=== PATIENT | female | born 1995 | race Asian ===

== ENCOUNTER 2022-10-29 14:08 | Inpatient (IN) ==
[2022-10-29 15:03] LABS: Basophils # (auto) 0.06 K/uL (0.00-0.20); Basophils % (auto) 0.7 %; Eosinophils # (auto) 0.38 K/uL (0.00-0.50); Eosinophils % (auto) 4.7 %; Hematocrit (blood only) 42.3 % (37.0-47.0); Hemoglobin 14.1 g/dl (12.0-16.0); Immature Granulocytes # (auto) 0.02 K/uL (0.01-0.20); Immature Granulocytes % (auto) 0.2 %; Lymphocytes # (auto) 2.59 K/uL (1.20-3.40); Lymphocytes % (auto) 31.7 %; Mean Corpuscular Hemoglobin 30.9 pg (25.0-34.0); Mean Corpuscular Hgb Conc 33.3 g/dL (32.0-36.0); Mean Corpuscular Volume 92.6 fL (80.0-100.0); Mean Platelet Volume 11.9 fL (9.4-12.4); Monocytes # (auto) 0.57 K/uL (0.11-0.59); Neutrophils # (auto) 4.55 K/uL (1.40-6.50); Neutrophils % (auto) 55.7 %; Platelet Count 310 K/uL (130-400); RDW Coefficient of Variation 11.9 % (11.5-14.5); RDW Standard Deviation 40.8 fL (36.4-46.3); Red Blood Count 4.57 M/uL (4.20-5.40); White Blood Count 8.17 K/ul (4.8-10.8)
[2022-10-29 15:18] LABS: Appearance Urine Clear (Clear); Bacteria Urine Automated Negative (Negative); Bilirubin Urine Negative (Negative); Blood Urine Negative (Negative); Cast Urine Automated 0 /lpf (0-5); Color Urine Yellow; Glucose Urine UA Negative (Negative); Ketones Urine Negative (Negative); Leukocyte Esterase Urine 1+ (Negative); Nitrite Urine Negative (Negative); Protein Urine Negative (Negative); RBC Urine Automated 0-4 /hpf (0-4); Specific Gravity Urine 1.011 (1.000-1.030); Urobilinogen Urine Negative (Negative); pH Urine 7.5 (4.5-7.5)
[2022-10-29 15:20] LABS: Acetaminophen < 3 ug/ml (10-30); Salicylate < 3.0 mg/dl (3.0-30)
[2022-10-29 15:21] LABS: Albumin Globulin Ratio 1.5 (0.9-2); Albumin Level 4.8 gm/dl (3.4-5.0); BUN Creatinine Ratio 21.9 (10-20); Bilirubin,Total 0.3 mg/dl (0.2-1.0); Calcium 9.2 mg/dl (8.6-10.3); Creatinine Clr Calc Pharmacy 115.8 ml/min; Est GFR (African American) 143.7 ml/min; Globulin 3.1 gm/dl (2.5-4.0); Potassium 3.9 mmol/L (3.5-5.1); Total Protein 7.9 gm/dl (6.0-8.3)
--- NOTE | 2022-10-29 15:29 | Emergency Department Note ---
History of Present Illness General Chief complaint: Mental Health Evaluation Stated complaint: MHE, THERAPIST CALLED Time Seen by Provider: 10/29/22 14:19 History of Present Illness Provider complaint: Mental health evaluation 27-year-old female presents emergency department for mental health evaluation. 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 Patient reports that she has been having suicidal thoughts. Patient states she has been having increasing stress because she will not be finishing her PhD doctorate and has been trying to find a job but has been unable to. Patient states she has a plan to hang herself. No chance of being . No drugs or alcohol. No access to any firearms. Allergies Allergy/AdvReac Type Severity Reaction Status Date / Time No Known Allergies Allergy Unverified 10/29/22 19:10 Past Med/Surg History Medical History No pertinent family history PTSD (post-traumatic stress disorder) Surgical History No pertinent past surgical history Social History Smoking Status: Never smoker Preferred Language: Sudanese Communication Ability: Effective Property Claims Adjuster Required: No Beliefs That Will Affect Care: None Feels Safe at Home: Yes Gender Identity: Female Assistive Devices: Glasses Physical Exam Vital Signs Vital Signs - 24 hr 10/29/22 14:12 Temperature 36.7 C Temperature Source Skin Pulse Rate 74 Respiratory Rate 18 Blood Pressure 118/78 Blood Pressure Mean 91 Pulse Oximetry 99 Oxygen Delivery Method Room Air Sepsis Recent Fever Within 48 Hours No Sepsis New/Unexplained Change in Mental Status No Sepsis Action Taken by Nursing No Action Required Physical Exam GENERAL: oriented to person, place, and time. appears well-developed and well- nourished. HENT: Exam performed. - Head: Normocephalic and atraumatic. EYES: Conjunctivae and EOM are normal. Right eye exhibits no discharge. Left eye exhibits no discharge. No scleral icterus. NECK: Normal range of motion. Neck supple. No JVD present. CV: Normal rate, regular rhythm, normal heart sounds and intact distal pulses. There is no peripheral edema. Palpable radial pulses bue. PULM/CHEST: Effort normal and breath sounds normal. No respiratory distress. No stridor. no wheezes. no rales. ABD: The abdomen is soft. There is no tenderness. NEURO: Motor and sensation grossly intact. SKIN: Skin is warm and dry. He is not diaphoretic. PSYCH: Suicidal ideation. Course Course 1419: The patient was evaluated in room A8. A complete history and physical exam was performed 1530: Patient medically cleared awaiting psychiatric evaluation and possible placement. Patient placed in observation at this time. 1845: Patient admitted to inpatient psychiatry Medical Decision Making Laboratory Data Attestation: I reviewed the patient's lab results. 10/29/22 14:34 10/29/22 14:34 Lab Results 10/29/22 10/29/22 10/29/22 Range/Units 14:25 14:25 14:34 WBC 8.17 (4.8-10.8) K/ul RBC 4.57 (4.20-5.40) M/uL Hgb 14.1 (12.0-16.0) g/dl Hct 42.3 (37.0-47.0) % MCV 92.6 (80.0-100.0) fL MCH 30.9 (25.0-34.0) pg MCHC 33.3 (32.0-36.0) g/dL RDW Std Deviation 40.8 (36.4-46.3) fL RDW Coeff of Mary 11.9 (11.5-14.5) % Plt Count 310 (130-400) K/uL MPV 11.9 (9.4-12.4) fL Immature Gran % (Auto) 0.2 % Neut % (Auto) 55.7 % Lymph % (Auto) 31.7 % [place] % (Auto) 7.0 % Eos % (Auto) 4.7 % Baso % (Auto) 0.7 % Neut # (Auto) 4.55 (1.40-6.50) K/uL Lymph # (Auto) 2.59 (1.20-3.40) K/uL [place] # (Auto) 0.57 (0.11-0.59) K/uL Eos # (Auto) 0.38 (0.00-0.50) K/uL Baso # (Auto) 0.06 (0.00-0.20) K/uL Immature Gran # (Auto) 0.02 (0.01-0.20) K/uL Sodium (136-145) mmol/L Potassium (3.5-5.1) mmol/L Chloride (98-107) mmol/L Carbon Dioxide (21-32) mmol/L Anion Gap (3-11) BUN (6-23) mg/dl Creatinine (0.6-1.2) mg/dl Est Cr Clr Drug Dosing ml/min Est GFR ( Amer) ml/min Est GFR (Non-Af Amer) ml/min BUN/Creatinine Ratio (10-20) Glucose (70-99(Fasting)) mg/dl Calcium (8.6-10.3) mg/dl Total Bilirubin (0.2-1.0) mg/dl AST (13-39) U/L ALT (7-52) U/L Alkaline Phosphatase (34-104) U/L Total Protein (6.0-8.3) gm/dl Albumin (3.4-5.0) gm/dl Globulin (2.5-4.0) gm/dl Albumin/Globulin Ratio (0.9-2) TSH (0.300-4.500) uIu/ml Urine Color Yellow Urine Appearance Clear (Clear) Urine pH 7.5 (4.5-7.5) Ur Specific [place] 1.011 (1.000-1.030) Urine Protein Negative (Negative) Urine Glucose (UA) Negative (Negative) Urine Ketones Negative (Negative) Urine Blood Negative (Negative) Urine Nitrite Negative (Negative) Urine Bilirubin Negative (Negative) Urine Urobilinogen Negative (Negative) Ur Leukocyte Esterase 1+ H (Negative) Urine WBC (Auto) 1-5 (0-5) /hpf Urine RBC (Auto) 0-4 (0-4) /hpf U Hyaline Cast (Auto) 0 (0-5) /lpf U Epithel Cells (Auto) 5-10 H (0-5) /lpf Urine Bacteria (Auto) Negative (Negative) Salicylates (3.0-30) mg/dl Urine Opiates Screen Neg (Neg) Ur Methadone, Qual Neg (Neg) Acetaminophen (10-30) ug/ml Urine Barbiturates Neg (Neg) Ur Phencyclidine (PCP) Neg (Neg) U Amphetamin/Meth Scrn Neg (Neg) MDMA (Ecstasy) Screen Neg (Neg) U Benzodiazepines Scrn Neg (Neg) Ur Cocaine Metabolite Neg (Neg) U Marijuana (THC) Screen Neg (Neg) Ethyl Alcohol mg/dL (<10.0) mg/dl SARS-CoV-2, RNA, NAAT (NEGATIVE) 10/29/22 10/29/22 10/29/22 Range/Units 14:34 14:34 14:34 WBC (4.8-10.8) K/ul RBC (4.20-5.40) M/uL Hgb (12.0-16.0) g/dl Hct (37.0-47.0) % MCV (80.0-100.0) fL MCH (25.0-34.0) pg MCHC (32.0-36.0) g/dL RDW Std Deviation (36.4-46.3) fL RDW Coeff of Mary (11.5-14.5) % Plt Count (130-400) K/uL MPV (9.4-12.4) fL Immature Gran % (Auto) % Neut % (Auto) % Lymph % (Auto) % [place] % (Auto) % Eos % (Auto) % Baso % (Auto) % Neut # (Auto) (1.40-6.50) K/uL Lymph # (Auto) (1.20-3.40) K/uL [place] # (Auto) (0.11-0.59) K/uL Eos # (Auto) (0.00-0.50) K/uL Baso # (Auto) (0.00-0.20) K/uL Immature Gran # (Auto) (0.01-0.20) K/uL Sodium 138 (136-145) mmol/L Potassium 3.9 (3.5-5.1) mmol/L Chloride 105 (98-107) mmol/L Carbon Dioxide 28 (21-32) mmol/L Anion Gap 5 (3-11) BUN 14 (6-23) mg/dl Creatinine 0.64 (0.6-1.2) mg/dl Est Cr Clr Drug Dosing 115.8 ml/min Est GFR ( Amer) 143.7 ml/min Est GFR (Non-Af Amer) 124.0 ml/min BUN/Creatinine Ratio 21.9 H (10-20) Glucose 88 (70-99(Fasting)) mg/dl Calcium 9.2 (8.6-10.3) mg/dl Total Bilirubin 0.3 (0.2-1.0) mg/dl AST 13 (13-39) U/L ALT 10 (7-52) U/L Alkaline Phosphatase 74 (34-104) U/L Total Protein 7.9 (6.0-8.3) gm/dl Albumin 4.8 (3.4-5.0) gm/dl Globulin 3.1 (2.5-4.0) gm/dl Albumin/Globulin Ratio 1.5 (0.9-2) TSH 1.005 (0.300-4.500) uIu/ml Urine Color Urine Appearance (Clear) Urine pH (4.5-7.5) Ur Specific [place] (1.000-1.030) Urine Protein (Negative) Urine Glucose (UA) (Negative) Urine Ketones (Negative) Urine Blood (Negative) Urine Nitrite (Negative) Urine Bilirubin (Negative) Urine Urobilinogen (Negative) Ur Leukocyte Esterase (Negative) Urine WBC (Auto) (0-5) /hpf Urine RBC (Auto) (0-4) /hpf U Hyaline Cast (Auto) (0-5) /lpf U Epithel Cells (Auto) (0-5) /lpf Urine Bacteria (Auto) (Negative) Salicylates < 3.0 L (3.0-30) mg/dl Urine Opiates Screen (Neg) Ur Methadone, Qual (Neg) Acetaminophen < 3 L (10-30) ug/ml Urine Barbiturates (Neg) Ur Phencyclidine (PCP) (Neg) U Amphetamin/Meth Scrn (Neg) MDMA (Ecstasy) Screen (Neg) U Benzodiazepines Scrn (Neg) Ur Cocaine Metabolite (Neg) U Marijuana (THC) Screen (Neg) Ethyl Alcohol mg/dL (<10.0) mg/dl SARS-CoV-2, RNA, NAAT (NEGATIVE) 10/29/22 10/29/22 Range/Units 14:34 14:34 WBC (4.8-10.8) K/ul RBC (4.20-5.40) M/uL Hgb (12.0-16.0) g/dl Hct (37.0-47.0) % MCV (80.0-100.0) fL MCH (25.0-34.0) pg MCHC (32.0-36.0) g/dL RDW Std Deviation (36.4-46.3) fL RDW Coeff of Mary (11.5-14.5) % Plt Count (130-400) K/uL MPV (9.4-12.4) fL Immature Gran % (Auto) % Neut % (Auto) % Lymph % (Auto) % [place] % (Auto) % Eos % (Auto) % Baso % (Auto) % Neut # (Auto) (1.40-6.50) K/uL Lymph # (Auto) (1.20-3.40) K/uL [place] # (Auto) (0.11-0.59) K/uL Eos # (Auto) (0.00-0.50) K/uL Baso # (Auto) (0.00-0.20) K/uL Immature Gran # (Auto) (0.01-0.20) K/uL Sodium (136-145) mmol/L Potassium (3.5-5.1) mmol/L Chloride (98-107) mmol/L Carbon Dioxide (21-32) mmol/L Anion Gap (3-11) BUN (6-23) mg/dl Creatinine (0.6-1.2) mg/dl Est Cr Clr Drug Dosing ml/min Est GFR ( Amer) ml/min Est GFR (Non-Af Amer) ml/min BUN/Creatinine Ratio (10-20) Glucose (70-99(Fasting)) mg/dl Calcium (8.6-10.3) mg/dl Total Bilirubin (0.2-1.0) mg/dl AST (13-39) U/L ALT (7-52) U/L Alkaline Phosphatase (34-104) U/L Total Protein (6.0-8.3) gm/dl Albumin (3.4-5.0) gm/dl Globulin (2.5-4.0) gm/dl Albumin/Globulin Ratio (0.9-2) TSH (0.300-4.500) uIu/ml Urine Color Urine Appearance (Clear) Urine pH (4.5-7.5) Ur Specific [place] (1.000-1.030) Urine Protein (Negative) Urine Glucose (UA) (Negative) Urine Ketones (Negative) Urine Blood (Negative) Urine Nitrite (Negative) Urine Bilirubin (Negative) Urine Urobilinogen (Negative) Ur Leukocyte Esterase (Negative) Urine WBC (Auto) (0-5) /hpf Urine RBC (Auto) (0-4) /hpf U Hyaline Cast (Auto) (0-5) /lpf U Epithel Cells (Auto) (0-5) /lpf Urine Bacteria (Auto) (Negative) Salicylates (3.0-30) mg/dl Urine Opiates Screen (Neg) Ur Methadone, Qual (Neg) Acetaminophen (10-30) ug/ml Urine Barbiturates (Neg) Ur Phencyclidine (PCP) (Neg) U Amphetamin/Meth Scrn (Neg) MDMA (Ecstasy) Screen (Neg) U Benzodiazepines Scrn (Neg) Ur Cocaine Metabolite (Neg) U Marijuana (THC) Screen (Neg) Ethyl Alcohol mg/dL < 10.0 (<10.0) mg/dl SARS-CoV-2, RNA, NAAT NEGATIVE (NEGATIVE) MDM Narrative 1419: The patient was evaluated in room A8. A complete history and physical exam was performed 1530: Patient medically cleared awaiting psychiatric evaluation and possible placement. Patient placed in observation at this time. 1845: Patient admitted to inpatient psychiatry Observation note Indication: Psych eval/placement Patient, with PTSD was first seen at 1419 hrs and the observation time began at 1530 hrs and was necessary in order to have psych evaluation completed . Upon re-evaluation, 3 hours and 15 minutes of observation revealed that the patient should be admitted. Disposition date and time October 29, 2022 1845. Impression & Plan Depression with suicidal ideation Discharge Plan Visit Data Chief Complaint: Mental Health Evaluation Stated Complaint: MHE, THERAPIST CALLED ED Provider: Jamey Huertas Discharge Problem: Depression with suicidal ideation Patient Disposition: Admitted As Inpatient Discharge Instructions Interventions: ED Discharge Assessment Last Done: 10/29/22 18:45
[2022-10-29 15:49] LABS: Amphetamines+Metham, Urine Neg (Neg); Barbiturates, Urine Neg (Neg); Benzodiazepine, Urine Neg (Neg); Cocaine, Urine Neg (Neg); MDMA (Ecstacy), Urine Neg (Neg); Methadone, Urine Neg (Neg); Opiate, Urine Neg (Neg); Phencyclidine, Urine Neg (Neg)
[2022-10-29] MEDS ORDERED: hydrOXYzine HCl 25 MG TAB PO PRN ×2 (22:04)
[2022-10-29] MEDS ORDERED: MAGNESIUM HYDROXIDE SUSP 30 ML UDC PO PRN (22:04)
[2022-10-29] MEDS ORDERED: ACETAMINOPHEN 325 MG TAB PO PRN (22:04)
[2022-10-29] MEDS ORDERED: BISMUTH SUBSALICYLATE LIQD 236 ML PO PRN (22:04)
[2022-10-29] MEDS ORDERED: ALUMINUM/MAGNESIUM SUSP 30 ML UDC PO PRN (22:04)
[2022-10-29] MEDS ORDERED: SODIUM CHLORIDE 0.65% NA SOLN 45 ML (OCEAN) PRN (22:04)
[2022-10-30] MEDS ORDERED: DULoxetine HCL 20 MG CAP PO SCH (13:30)
--- NOTE | 2022-10-30 13:39 | History & Physical ---
Date of Service October 30, 2022 Impression / Recommendations Impression 27 y/o F with history of PTSD and current strongly ego-dystonic obsessive fears that she might kill herself and intrusive images of her friend's and sometimes her own body hanging. She is very distressed by these intrusive thoughts and is anxious about a number of life issues including graduate school and career. In my opinion, she presents a low risk of suicide, which is something she fears rather than something she wants. I don't believe that her involuntary admission resulted from communication problems on her part so much as clinicians' somewhat restricted and uncritical acceptance of her initial (and honest and accurate) responses to the formulaic questions we so often ask about "suicidal thoughts" and "suicidal plans". Her obsessive thoughts include the fear she might kill herself and are very specifically about hanging, but don't actually reflect any wish on her part to be or to hang herself. (1) PTSD (post-traumatic stress disorder): Plan The patient was admitted to the [facility] ([facility] mental health unit) on q15 min checks (behavioral with suicide precautions) for safety. In light of further detailed interview by multiple clinicians here, I do not believe she meets criteria for involuntary emergency psychiatric treatment and can appropriately and safely be treated on an outpatient basis if she is not willing to initiate treatment in the hospital. I discussed with pt medication options for medication treatment of PTSD, specifically SSRI or SNRI. Given her degree of generalized anxiety and the obsessive nature of some of her thoughts, I focused on the SNRI duloxetine. We reviewed indications, anticipated benefits, and potential adverse effects of that medication including GI side effects, headaches, elevated blood pressure, or discontinuation symptoms if stopped abruptly. She agreed to a trial of duloxetine at a starting dose of 20 mg daily with planned titration over the course of 1 week to a target dose of 60 mg/day. 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 Needs: safety and stabilization, medication adjustment, additional coping skills, increased outpatient services Suicide Risk Level Suicide Risk Level: Low (q15 min observation checks) Suicide Risk Level Comments: ego-dystonic suicidal obsessions; readily contracts for safety Risk Factors Assessment Male: No : No Do You Have Access To A Gun?: No Health Problems: No Mental Health Diagnoses: Yes Substance Use Disorders: No Previous Attempt: No Family History of Suicide: No (but close friend, whose body she found) Hopelessness: Yes Protective Factors Assessment : No Responsible for Young Children: No 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 Chief Complaint "I don't need to be here". History of Present Illness As part of a thorough review of the available medical records, I have read and confirmed the following note by the ED physician: "27-year-old female presents emergency department for mental health evaluation. 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 Patient reports that she has been having suicidal thoughts. Patient states she has been having increasing stress because she will not be finishing her PhD doctorate and has been trying to find a job but has been unable to. Patient states she has a plan to hang herself. No chance of being . No drugs or alcohol. No access to any firearms." the following note by the ED psychiatric bottle caser: "Patient was sent to the ED by her therapist for further mental health evaluation due to suicidal ideations. 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 Patient is stressed because she has already attempted to find a job, but the market is bad. Patient is diagnosed with PTSD. Patient admits to suicidal ideations with a plan to hang herself. Patient does not have access to guns. Patient denies any drug and alcohol use." and the following note by the psychiatric liaison nurse: "Met with Patricia to complete psychiatric assessment. She admits to suicidal thoughts with a plan to hang herself. Her only service provider at the moment is her therapist, Margie Reardon. She carries a diagnosis of PTSD and is not on any medication for her mental health. Her most significant stressor at this time is her studies within her PhD program at [employer]. At the time of assessment, Patricia was not overly forthcoming with information and shared only short answers. She admits to having no motivation but does not elaborate how this impacts her day-to-day life. She expresses that she wishes to leave and that she thought she would be able to be prescribed medication and be discharged. She states she never would have came to the ED if she would have known that the process was more extensive than she had thought. She states she has been experiencing moderate to severe anxiety. She denies having any local supports and her family in [place] reportedly are not aware of Patricia's mental health decline. She lives in an apartment with roommates but states these roommates are not her friends. She denies SIB, HI, A/V hallucinations, and abuse hx. She admits to a past suicide attempt by hanging 2-3 years ago and states she did not receive any treatment following this attempt. I spoke extensively to Patricia about inpatient psychiatric treatment and Patricia states that she will not sign herself in for treatment. This bottle caser completed a petitioning statement and contacted the [facility] for a mental health warrant." Review of the medical record reveals no previous or outside psychiatric records. Pt. carries diagnosis of PTSD. Review of pertinent labs reveals they are noncontributory. Urine toxicology screen that was negative for all tested substrates. BAL was <10 mg/dL. Pt provides a history that superficially overlaps with above documentation, but which disagrees with it in several critically important ways. In 2016, pt found a friend who had completed suicide by hanging. Pt cut that friend's body down. This was understandably highly distressing. Since that time, pt has had intrusive recollections of that event, increased anxiety, and depressive symptoms including anhedonia and reduced motivation. She has been engaging in psychotherapeutic treatment but has never used any psychiatric medication. 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 Over the past week, she says, she has felt increasingly overwhelmed and worried. She has begun having the obsessive fear that she might, at some point for some reason, feel compelled to hang herself. These thoughts are strongly ego-dystonic - she finds them frightening and horrifying, and fears further the devastating consequences for others if they were to encounter her of hanging. She has no need to struggle against acting on suicidal impulses because she doesn't actually have any - she struggles to push out of her thoughts the unpleasant and scary fear that she might do this thing she finds abhorrent and does not want to do. Pt denies the above-quoted report that she had attempted to hang herself 2-3 years ago. She says she had a previous period of intense, intrusive thoughts like the present ones and then, just as now, had no desire to harm herself and did nothing to harm herself. Pt says that when she was asked if she had suicidal thoughts, she endorsed that she did have obsessive, ego-dystonic thoughts about suicide. She says that when she was asked if she had a plan, she endorsed that she did because all of those obsessive, ego-dystonic thoughts were specifically about hanging. In speaking at length with a rn social services, and again with me, pt consistently emphasized that she had no desire to be and, in fact, fears dying. She consistently emphasized that she fears that she might end up killing herself by hanging because for years she's had unpleasant and frightening intrusive images of her friend's or her own body hanging. Pt strongly desires treatment, hoping that medication might help her stop having these burdensome and distressing symptoms. She does not believe that she needs to be in the hospital for safety and insists that she will be perfectly safe at home and wants more outpatient treatment than that in which she'd been engaging prior to admission. Past Psychiatric History Current Psychiatric Diagnosis: Major depressive d/o Outpatient Services: Outpatient psychotherapy Previous Psych Admissions: none Do You Have Access To A Gun?: No History of Previous Suicide Attempt: No Past Medication Trials: none Allergies Allergy/AdvReac Type Severity Reaction Status Date / Time No Known Allergies Allergy Unverified 10/29/22 19:10 Home Medications Medication Instructions Recorded Confirmed Type duloxetine 20 mg capsule,delayed See Rx Instructions .Route 10/30/22 Rx release (Cymbalta) .COMPLEX 30 days #80 caps Family History Family History of: Doesn't Know Alcohol History Hx of Alcohol Use Over the Past 12 Months: No AUDIT Total Score: 0 Smoking Use Have You Smoked or Used Tobacco Products in the Last 30 Days: No Smoking Status: Never smoker Substance History Hx of Prescription Med Misuse Over the Past 12 Months: No Hx of Over the Counter Med Misuse Over the Past 12 Months: No Hx of Inhalent Misuse Over the Past 12 Months: No Hx of Organic Substance Use Over the Past 12 Months: No Hx of Illegal Substances/Street Drug Use Over Past 12 Months: No Problems as a Result of Past Substance Use: None Identified Personal History Living Arrangements: Apartment Highest Grade Completed: Graduate School Highest Grade Completed Comment: 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 in 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 Marital Status: Single Beliefs That Will Affect Care: None Patient History Medical History No pertinent family history PTSD (post-traumatic stress disorder) Surgical History No pertinent past surgical history Social History Smoking Status: Never smoker Preferred Language: Panamanian Communication Ability: Effective Wringer And Setter Required: No Beliefs That Will Affect Care: None Feels Safe at Home: Yes Gender Identity: Female Assistive Devices: Glasses Review of Systems Psychiatric: as per Subjective / HPI, + hopelessness, + anhedonia, + anxiety, + difficulty concentrating and + problem reported (flashbacks, obsessions); no suicidal ideation and no hallucinations Physical Exam Psychiatric: Orientation: alert, oriented to person, oriented to place, oriented to time and cooperative Apperance: appropriately dressed and appropriately groomed Eye Contact: good eye contact Motor Behavior: no abnormal motor movements Speech: normal rate/rhythm/volume of speech Affect: + anxious affect and mood congruent with affect Mood: + anxious mood Thought Process: linear/logical thought process and clear/coherent thought process Thought Content: + obsessions and + cognitive distortions; no delusions Suicidal Thoughts: denies suicidal thoughts, denies suicidal plan and denies suicidal intent frequent ego-dystonic obsessions about suicide Homicidal Thoughts: denies homicidal thoughts Hallucinations: no auditory hallucinations and no visual hallucinations Cognition: recent memory grossly intact, remote memory grossly intact, attention grossly intact and language grossly intact spoken Panamanian and Panamanian comprehension excellent Estimated Intelligence: + above average estimated intelligence Insight: good insight Judgment: + fair judgement Vital Signs (Past 24 Hours): Last Vital Signs Temp 36.5 C 10/30/22 07:13 Pulse 69 10/30/22 07:13 Resp 16 10/30/22 07:13 BP 93/66 L 10/30/22 07:13 Pulse Ox 99 10/29/22 18:45 O2 Del Method Room Air 10/29/22 18:45 Exam Statement: A physical exam was performed in the ED for the purposes of medical clearance. I accept that physical as correct and adequate for the purposes of the inpatient physical exam. Results & Data ([facility]) Laboratory Results Laboratory Results - last 24 hr 10/29/22 10/29/22 10/29/22 14:25 14:25 14:34 WBC 8.17 RBC 4.57 Hgb 14.1 Hct 42.3 MCV 92.6 MCH 30.9 MCHC 33.3 RDW Std Deviation 40.8 RDW Coeff of Mary 11.9 Plt Count 310 MPV 11.9 Immature Gran % (Auto) 0.2 Neut % (Auto) 55.7 Lymph % (Auto) 31.7 [place] % (Auto) 7.0 Eos % (Auto) 4.7 Baso % (Auto) 0.7 Neut # (Auto) 4.55 Lymph # (Auto) 2.59 [place] # (Auto) 0.57 Eos # (Auto) 0.38 Baso # (Auto) 0.06 Immature Gran # (Auto) 0.02 Sodium Potassium Chloride Carbon Dioxide Anion Gap BUN Creatinine Est Cr Clr Drug Dosing Est GFR ( Amer) Est GFR (Non-Af Amer) BUN/Creatinine Ratio Glucose Calcium Total Bilirubin AST ALT Alkaline Phosphatase Total Protein Albumin Globulin Albumin/Globulin Ratio TSH Urine Color Yellow Urine Appearance Clear Urine pH 7.5 Ur Specific [place] 1.011 Urine Protein Negative Urine Glucose (UA) Negative Urine Ketones Negative Urine Blood Negative Urine Nitrite Negative Urine Bilirubin Negative Urine Urobilinogen Negative Ur Leukocyte Esterase 1+ H Urine WBC (Auto) 1-5 Urine RBC (Auto) 0-4 U Hyaline Cast (Auto) 0 U Epithel Cells (Auto) 5-10 H Urine Bacteria (Auto) Negative Salicylates Urine Opiates Screen Neg Ur Methadone, Qual Neg Acetaminophen Urine Barbiturates Neg Ur Phencyclidine (PCP) Neg U Amphetamin/Meth Scrn Neg MDMA (Ecstasy) Screen Neg U Benzodiazepines Scrn Neg Ur Cocaine Metabolite Neg U Marijuana (THC) Screen Neg Ethyl Alcohol mg/dL SARS-CoV-2, RNA, NAAT 10/29/22 10/29/22 10/29/22 14:34 14:34 14:34 WBC RBC Hgb Hct MCV MCH MCHC RDW Std Deviation RDW Coeff of Mary Plt Count MPV Immature Gran % (Auto) Neut % (Auto) Lymph % (Auto) [place] % (Auto) Eos % (Auto) Baso % (Auto) Neut # (Auto) Lymph # (Auto) [place] # (Auto) Eos # (Auto) Baso # (Auto) Immature Gran # (Auto) Sodium 138 Potassium 3.9 Chloride 105 Carbon Dioxide 28 Anion Gap 5 BUN 14 Creatinine 0.64 Est Cr Clr Drug Dosing 115.8 Est GFR ( Amer) 143.7 Est GFR (Non-Af Amer) 124.0 BUN/Creatinine Ratio 21.9 H Glucose 88 Calcium 9.2 Total Bilirubin 0.3 AST 13 ALT 10 Alkaline Phosphatase 74 Total Protein 7.9 Albumin 4.8 Globulin 3.1 Albumin/Globulin Ratio 1.5 TSH 1.005 Urine Color Urine Appearance Urine pH Ur Specific [place] Urine Protein Urine Glucose (UA) Urine Ketones Urine Blood Urine Nitrite Urine Bilirubin Urine Urobilinogen Ur Leukocyte Esterase Urine WBC (Auto) Urine RBC (Auto) U Hyaline Cast (Auto) U Epithel Cells (Auto) Urine Bacteria (Auto) Salicylates < 3.0 L Urine Opiates Screen Ur Methadone, Qual Acetaminophen < 3 L Urine Barbiturates Ur Phencyclidine (PCP) U Amphetamin/Meth Scrn MDMA (Ecstasy) Screen U Benzodiazepines Scrn Ur Cocaine Metabolite U Marijuana (THC) Screen Ethyl Alcohol mg/dL SARS-CoV-2, RNA, NAAT 10/29/22 10/29/22 14:34 14:34 WBC RBC Hgb Hct MCV MCH MCHC RDW Std Deviation RDW Coeff of Mary Plt Count MPV Immature Gran % (Auto) Neut % (Auto) Lymph % (Auto) [place] % (Auto) Eos % (Auto) Baso % (Auto) Neut # (Auto) Lymph # (Auto) [place] # (Auto) Eos # (Auto) Baso # (Auto) Immature Gran # (Auto) Sodium Potassium Chloride Carbon Dioxide Anion Gap BUN Creatinine Est Cr Clr Drug Dosing Est GFR ( Amer) Est GFR (Non-Af Amer) BUN/Creatinine Ratio Glucose Calcium Total Bilirubin AST ALT Alkaline Phosphatase Total Protein Albumin Globulin Albumin/Globulin Ratio TSH Urine Color Urine Appearance Urine pH Ur Specific [place] Urine Protein Urine Glucose (UA) Urine Ketones Urine Blood Urine Nitrite Urine Bilirubin Urine Urobilinogen Ur Leukocyte Esterase Urine WBC (Auto) Urine RBC (Auto) U Hyaline Cast (Auto) U Epithel Cells (Auto) Urine Bacteria (Auto) Salicylates Urine Opiates Screen Ur Methadone, Qual Acetaminophen Urine Barbiturates Ur Phencyclidine (PCP) U Amphetamin/Meth Scrn MDMA (Ecstasy) Screen U Benzodiazepines Scrn Ur Cocaine Metabolite U Marijuana (THC) Screen Ethyl Alcohol mg/dL < 10.0 SARS-CoV-2, RNA, NAAT NEGATIVE Current Inpatient Medications Current Inpatient Medications: Current Inpatient Medications Acetaminophen (Acetaminophen 325 Mg Tab) 650 mg PO Q4H PRN PRN Reason: Headache or Minor Fever Stop: 11/28/22 22:03 Al Hydrox/Mg Hydrox/Simethicone (Aluminum/Magnesium Susp 30 Ml Udc) 30 ml PO Q4H PRN PRN Reason: GI Upset Stop: 11/28/22 22:03 Bismuth Subsalicylate (Bismuth Subsalicylate Liqd 236 Ml) 15 ml PO PRN PRN PRN Reason: Loose Stool Stop: 11/28/22 22:03 Duloxetine HCl (Duloxetine Hcl 20 Mg Cap) 20 mg PO QAM MARTINA Stop: 11/29/22 13:29 Hydroxyzine HCl (Hydroxyzine Hcl 25 Mg Tab) 50 mg PO HSZ PRN PRN Reason: Insomnia Stop: 11/28/22 22:03 Hydroxyzine HCl (Hydroxyzine Hcl 25 Mg Tab) 25 mg PO Q4H PRN PRN Reason: Anxiety Stop: 11/28/22 22:03 Last Admin: 10/30/22 04:19 Dose: 25 mg Magnesium Hydroxide (Magnesium Hydroxide Susp 30 Ml Udc) 30 ml PO DAILY PRN PRN Reason: Constipation Stop: 11/28/22 22:03 Sodium Chloride (Sodium Chloride 0.65% Na Soln 45 Ml ([place])) 1 - 2 sprays NA PRN PRN PRN Reason: Nasal Dryness/Congestion Stop: 11/28/22 22:03
--- NOTE | 2022-10-30 15:19 | Discharge Summary ---
Date of Service October 30, 2022 History of Present Illness As part of a thorough review of the available medical records, I have read and confirmed the following note by the ED physician: "27-year-old female presents emergency department for mental health evaluation. 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 Patient reports that she has been having suicidal thoughts. Patient states she has been having increasing stress because she will not be finishing her PhD doctorate and has been trying to find a job but has been unable to. Patient states she has a plan to hang herself. No chance of being . No drugs or alcohol. No access to any firearms." the following note by the ED psychiatric human services case manager: "Patient was sent to the ED by her therapist for further mental health evaluation due to suicidal ideations. 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 Patient is stressed because she has already attempted to find a job, but the market is bad. Patient is d iagnosed with PTSD. Patient admits to suicidal ideations with a plan to hang herself. Patient does not have access to guns. Patient denies any drug and alcohol use." and the following note by the psychiatric liaison nurse: "Met with Patricia to complete psychiatric assessment. She admits to suicidal thoughts with a plan to hang herself. Her only service provider at the moment is her therapist, Margie Reardon. She carries a diagnosis of PTSD and is not on any medication for her mental health. Her most significant stressor at this time is her studies within her PhD program at [employer]. At the time of assessment, Patricia was not overly forthcoming with information and shared only short answers. She admits to having no motivation but does not elaborate how this impacts her day-to-day life. She expresses that she wishes to leave and that she thought she would be able to be prescribed medication and be discharged. She states she never would have came to the ED if she would have known that the process was more extensive than she had thought. She states she has been experiencing moderate to severe anxiety. She denies having any local supports and her family in [place] reportedly are not aware of Patricia's mental health decline. She lives in an apartment with roommates but states these roommates are not her friends. She denies SIB, HI, A/V hallucinations, and abuse hx. She admits to a past suicide attempt by hanging 2-3 years ago and states she did not receive any treatment following this attempt. I spoke extensively to Patricia about inpatient psychiatric treatment and Patricia states that she will not sign herself in for treatment. This human services case manager completed a petitioning statement and contacted the [facility] for a mental health warrant." Review of the medical record reveals no previous or outside psychiatric records. Pt. carries diagnosis of PTSD. Review of pertinent labs reveals they are noncontributory. Urine toxicology screen that was negative for all tested substrates. BAL was <10 mg/dL. Pt provides a history that superficially overlaps with above documentation, but which disagrees with it in several critically important ways. In 2016, pt found a friend who had completed suicide by hanging. Pt cut that friend's body down. This was understandably highly distressing. Since that time, pt has had intrusive recollections of that event, increased anxiety, and depressive symptoms including anhedonia and reduced motivation. She has been engaging in psychotherapeutic treatment but has never used any psychiatric m edication. 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 Over the past week, she says, she has felt increasingly overwhelmed and worried. She has begun having the obsessive fear that she might, at some point for some reason, feel compelled to hang herself. These thoughts are strongly ego-dystonic - she finds them frightening and horrifying, and fears further the devastating consequences for others if they were to encounter her of hanging. She has no need to struggle against acting on suicidal impulses because she doesn't actually have any - she struggles to push out of her thoughts the unpleasant and scary fear that she might do this thing she finds abhorrent and does not want to do. Pt denies the above-quoted report that she had attempted to hang herself 2-3 years ago. She says she had a previous period of intense, intrusive thoughts like the present ones and then, just as now, had no desire to harm herself and did nothing to harm herself. Pt says that when she was asked if she had suicidal thoughts, she endorsed that she did have obsessive, ego-dystonic thoughts about suicide. She says that when she was asked if she had a plan, she endorsed that she did because all of those obsessive, ego-dystonic thoughts were specifically about hanging. In speaking at length with a social services director, and again with me, pt consistently emphasized that she had no desire to be and, in fact, fears dying. She consistently emphasized that she fears that she might end up killing herself by hanging because for years she's had unpleasant and frightening intrusive images of her friend's or her own body hanging. Pt strongly desires treatment, hoping that medication might help her stop having these burdensome and distressing symptoms. She does not believe that she needs to be in the hospital for safety and insists that she will be perfectly safe at home and wants more outpatient treatment than that in which she'd been engaging prior to admission. Physical Exam Psychiatric Orientation: alert, oriented to person, oriented to place, oriented to time and cooperative Apperance: appropriately dressed and appropriately groomed Eye Contact: good eye contact Motor Behavior: no abnormal motor movements Speech: normal rate/rhythm/volume of speech Affect: + anxious affect and mood congruent with affect Mood: + anxious mood Thought Process: linear/logical thought process and clear/coherent thought process Thought Content: + obsessions and + cognitive distortions; no delusions Suicidal Thoughts: denies suicidal thoughts, denies suicidal plan and denies suicidal intent Homicidal Thoughts: denies homicidal thoughts Hallucinations: no auditory hallucinations and no visual hallucinations Cognition: recent memory grossly intact, remote memory grossly intact, attention grossly intact and language grossly intact Estimated Intelligence: + above average estimated intelligence Insight: good insight Judgment: + fair judgement Vital Signs (Past 24 Hours) Last Vital Signs Temp 36.5 C 10/30/22 07:13 Pulse 69 10/30/22 07:13 Resp 16 10/30/22 07:13 BP 93/66 L 10/30/22 07:13 Pulse Ox 99 10/29/22 18:45 O2 Del Method Room Air 10/29/22 18:45 See admission H&P and DOD assessment. Principal Diagnosis Post-traumatic stress disorder Psychiatric Data See daily stay summary. In short, safety was maintained and the patient was cooperative with care. Medication changes included addition of duloxetine and they tolerated this well. A family session was not held and safety plan was completed prior to discharge. Day of Discharge Assessment Today the patient voices readiness for discharge. They deny thoughts to harm self or others. Thoughts remain organized and they are improved from admission. There is no evidence of psychosis. They agree to take medications as prescribed and keep follow-up appointments. They are stable for discharge to outpatient level of care. Transition of Care Transition Of Care Record: was reviewed with the patient Advance Directives Advance Directives Information Provided: Yes Advance Directives: No Mental Health Advance Directive: No Advance Directives on File: No Living Will: No Power of Employee Benefits Manager: No Advance Directives Reason:: Declines as Mental Health Visit. 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) Tobacco Cessation at Discharge Tobacco Cessation Medication Prescribed at Discharge: Not Applicable/Non-Smoker Total Time Total Time Spent: Greater Than 30 Minutes Total Time Includes: Examination of the patient, Discharge Planning, Medication Reconciliation and As well as (documentation) Discharge Data Lab Results 10/29/22 10/29/22 10/29/22 14:25 14:25 14:34 WBC 8.17 RBC 4.57 Hgb 14.1 Hct 42.3 MCV 92.6 MCH 30.9 MCHC 33.3 RDW Std Deviation 40.8 RDW Coeff of Mary 11.9 Plt Count 310 MPV 11.9 Immature Gran % (Auto) 0.2 Neut % (Auto) 55.7 Lymph % (Auto) 31.7 [place] % (Auto) 7.0 Eos % (Auto) 4.7 Baso % (Auto) 0.7 Neut # (Auto) 4.55 Lymph # (Auto) 2.59 [place] # (Auto) 0.57 Eos # (Auto) 0.38 Baso # (Auto) 0.06 Immature Gran # (Auto) 0.02 Sodium Potassium Chloride Carbon Dioxide Anion Gap BUN Creatinine Est Cr Clr Drug Dosing Est GFR ( Amer) Est GFR (Non-Af Amer) BUN/Creatinine Ratio Glucose Calcium Total Bilirubin AST ALT Alkaline Phosphatase Total Protein Albumin Globulin Albumin/Globulin Ratio TSH Urine Color Yellow Urine Appearance Clear Urine pH 7.5 Ur Specific [place] 1.011 Urine Protein Negative Urine Glucose (UA) Negative Urine Ketones Negative Urine Blood Negative Urine Nitrite Negative Urine Bilirubin Negative Urine Urobilinogen Negative Ur Leukocyte Esterase 1+ H Urine WBC (Auto) 1-5 Urine RBC (Auto) 0-4 U Hyaline Cast (Auto) 0 U Epithel Cells (Auto) 5-10 H Urine Bacteria (Auto) Negative Salicylates Urine Opiates Screen Neg Ur Methadone, Qual Neg Acetaminophen Urine Barbiturates Neg Ur Phencyclidine (PCP) Neg U Amphetamin/Meth Scrn Neg MDMA (Ecstasy) Screen Neg U Benzodiazepines Scrn Neg Ur Cocaine Metabolite Neg U Marijuana (THC) Screen Neg Ethyl Alcohol mg/dL SARS-CoV-2, RNA, NAAT 10/29/22 10/29/22 10/29/22 14:34 14:34 14:34 WBC RBC Hgb Hct MCV MCH MCHC RDW Std Deviation RDW Coeff of Mary Plt Count MPV Immature Gran % (Auto) Neut % (Auto) Lymph % (Auto) [place] % (Auto) Eos % (Auto) Baso % (Auto) Neut # (Auto) Lymph # (Auto) [place] # (Auto) Eos # (Auto) Baso # (Auto) Immature Gran # (Auto) Sodium 138 Potassium 3.9 Chloride 105 Carbon Dioxide 28 Anion Gap 5 BUN 14 Creatinine 0.64 Est Cr Clr Drug Dosing 115.8 Est GFR ( Amer) 143.7 Est GFR (Non-Af Amer) 124.0 BUN/Creatinine Ratio 21.9 H Glucose 88 Calcium 9.2 Total Bilirubin 0.3 AST 13 ALT 10 Alkaline Phosphatase 74 Total Protein 7.9 Albumin 4.8 Globulin 3.1 Albumin/Globulin Ratio 1.5 TSH 1.005 Urine Color Urine Appearance Urine pH Ur Specific [place] Urine Protein Urine Glucose (UA) Urine Ketones Urine Blood Urine Nitrite Urine Bilirubin Urine Urobilinogen Ur Leukocyte Esterase Urine WBC (Auto) Urine RBC (Auto) U Hyaline Cast (Auto) U Epithel Cells (Auto) Urine Bacteria (Auto) Salicylates < 3.0 L Urine Opiates Screen Ur Methadone, Qual Acetaminophen < 3 L Urine Barbiturates Ur Phencyclidine (PCP) U Amphetamin/Meth Scrn MDMA (Ecstasy) Screen U Benzodiazepines Scrn Ur Cocaine Metabolite U Marijuana (THC) Screen Ethyl Alcohol mg/dL SARS-CoV-2, RNA, NAAT 10/29/22 10/29/22 14:34 14:34 WBC RBC Hgb Hct MCV MCH MCHC RDW Std Deviation RDW Coeff of Mary Plt Count MPV Immature Gran % (Auto) Neut % (Auto) Lymph % (Auto) [place] % (Auto) Eos % (Auto) Baso % (Auto) Neut # (Auto) Lymph # (Auto) [place] # (Auto) Eos # (Auto) Baso # (Auto) Immature Gran # (Auto) Sodium Potassium Chloride Carbon Dioxide Anion Gap BUN Creatinine Est Cr Clr Drug Dosing Est GFR ( Amer) Est GFR (Non-Af Amer) BUN/Creatinine Ratio Glucose Calcium Total Bilirubin AST ALT Alkaline Phosphatase Total Protein Albumin Globulin Albumin/Globulin Ratio TSH Urine Color Urine Appearance Urine pH Ur Specific [place] Urine Protein Urine Glucose (UA) Urine Ketones Urine Blood Urine Nitrite Urine Bilirubin Urine Urobilinogen Ur Leukocyte Esterase Urine WBC (Auto) Urine RBC (Auto) U Hyaline Cast (Auto) U Epithel Cells (Auto) Urine Bacteria (Auto) Salicylates Urine Opiates Screen Ur Methadone, Qual Acetaminophen Urine Barbiturates Ur Phencyclidine (PCP) U Amphetamin/Meth Scrn MDMA (Ecstasy) Screen U Benzodiazepines Scrn Ur Cocaine Metabolite U Marijuana (THC) Screen Ethyl Alcohol mg/dL < 10.0 SARS-CoV-2, RNA, NAAT NEGATIVE Hospital Course (1) PTSD (post-traumatic stress disorder): Plan The patient was admitted to the [facility] ([facility] inpatient mental health unit) on q15 min checks (behavioral with suicide precautions) for safety. In light of further detailed interview by multiple clinicians here, I do not believe she meets criteria for involuntary emergency psychiatric treatment and can appropriately and safely be treated on an outpatient basis if she is not willing to initiate treatment in the hospital. I discussed with pt medication options for medication treatment of PTSD, specifically SSRI or SNRI. Given her degree of generalized anxiety and the obsessive nature of some of her thoughts, I focused on the SNRI duloxetine. We reviewed indications, anticipated benefits, and potential adverse effects of that medication including GI side effects, headaches, elevated blood pressure, or discontinuation symptoms if stopped abruptly. She agreed to a trial of duloxetine at a starting dose of 20 mg daily with planned titration over the course of 1 week to a target dose of 60 mg/day. Mental Health & Subst Abuse Tx Therapist Name of Therapist: Margie Reardon Date of Therapist Appointment: October 31 Time of Therapist Appointment: 2 PM Post Discharge Appointments Smoking Cessation Counseling Tobacco Cessation Medication Prescribed at Discharge: Not Applicable/Non-Smoker Discharge Plan Discharge Items Patient Disposition: Home - Self-Care Reason For Visit: MDD, 302 Discharge Diagnosis: Post-traumatic stress disorder Activity: Resume your previous activity Non-emergency contact: Primary Care Provider and Psychiatrist Call non-emergency contact if: you have any medication questions and your symptoms worsen Follow-up/Referrals: [facility] [Primary Care Provider] - Diet: Regular Addtl Attending Provider Instructions: SPECIAL CARE INSTRUCTIONS: 1. Follow through with your scheduled aftercare appointments. If unable to keep an appointment, please call to reschedule. 2. Take your medication only as prescribed. Medication should not be changed or stopped without the approval of your doctor. In the event of worsening symptoms or concerns about side effects, contact your doctor immediately. 3. Utilize new healthy coping skills, anger management skills, and stress management skills learned during your hospitalization. Journal feelings and process them with a support person. Identify stressors or situations that may result in relapse, deterioration or inappropriate behaviors and develop a plan to deal with those issues. 4. If your coping skills are ineffective and you are in crisis, contact your outpatient providers for direction. If unable to reach your providers, please call the [facility] CRISIS LINE AT , go to the [facility] walk-in center at [address], [address], [place], or go to the closest Emergency Room. 5. Avoid alcohol and un-prescribed drugs. 6. You have been provided with the Mental Health Advance Directives Pamphlet for your review. 7. Your condition is stable for discharge to outpatient level of care, but recovery is an ongoing process. Ifthoughts to harm yourself or others return, follow the safety plan developed during your stay. Planning for a safe return home includes securing weapons. Our treatment team recommends weaponsbe removed from the home until your outpatient provider reassesses your progress. In rare cases where the items themselvescannot be removed, guns and ammunitionshould be secured separatelyand keys stored by a reliable personoutside of the home. If you were admitted on an involuntary commitment, the police or other legal authorities may be involved in this process. AFTERCARE APPOINTMENTS: * Please call your insurance company prior to your scheduled appointment to confirm your aftercare providers are covered. Take your insurance information to your appointments. WHO TO CALL AND WHEN: Medical Emergencies: For questions or emergencies related to your hospital stay, please contact the Inpatient Behavioral Health Unit at [phone]. A pricing intern is on-call 24/09 for the Behavioral Health Unit for emergencies At any time you feel your situation is an emergency, you may also call 911 immediately. MEDICATION INSTRUCTIONS: venlafaxine extended-release ("Effexor XR") take 1 capsule by mouth every morning for 3 days, then increase to 2 capsules by mouth every morning for 4 days, then increase to 3 capsules by mouth every morning there is a 60 mg capsule to which you could switch once the dose has been adjusted Pending Studies at Discharge: No Stand-Alone Forms: My [facility], Smoking Cessation Medications and DC Order Prescriptions: New duloxetine [Cymbalta] 20 mg Capsule,Delayed Release(Dr/Ec) See Rx Instructions .ROUTE .COMPLEX 30 Days Qty: 80 0RF Rx Instructions: take 1 capsule by mouth every morning for 3 days, then increase to 2 capsules by mouth every morning for 4 days, then increase to 3 capsules by mouth every morning Discharge Orders: Discharge Order (Routine); Ordered 10/30/22 Ordered By: Woo Goel Admission Data Admit Date/Time: 10/29/22 18:35 Attending Provider: Woo Goel Admit Provider: Woo Goel Primary Care Provider: [facility] Coding Level of Care Code 03813 D/C day mgmt > 30 min Diagnoses PTSD (post-traumatic stress disorder) F43.10 Time Spent (min) 51
== END 2022-10-30 15:45 | disposition home or self-care (01) | DRG 882 ==
LOC: ED 14:08 → 3S 18:35
DX: F43.10 Post-traumatic stress disorder, unspecified; R45.851 Suicidal ideations